=== PATIENT | female | born 1960 | race Caucasian/White ===

== ENCOUNTER → 2018-03-29 | Outpatient (REF) | payer BC ==
[2016-07-27 15:20] VITALS: BMI 19.7
[~2018-03-29] MED LIST: ASCO-188 PO; ASCO500C9 PO; BREX1TAB PO; CALC-515 PO; CALC500T6 PO; CHOL10005 PO; CHOL200025 PO; CITA-156 PO; CYCL1DRO6 OP; DIA5 PO; FERR-53 PO; FERR140T2 PO; FLUO60TA PO; FOLI-68 PO; GABA-549 PO; HYDR200T42 PO; HYDR200T77 PO; IRON150C19 PO; LEVO50TA80 PO; LEVO50TA86 PO; LIT300L FT; METH2.5T43 PO; MIRT-25 PO; MIRT-28 PO; MULT-1379 PO; OLAN10TA25 PO; OLAN5TAB25 PO; PROP20TA56 PO; RHEUMATREX PO
== END ==
LOC: ZZSENDIN 09:00
PROVIDERS: ATTEND Physician Assistant
DX: Z51.81 Encounter for therapeutic drug level monitoring (principal); Z79.899 Other long term (current) drug therapy
CPT/HCPCS: 80074; 80178

== ENCOUNTER → 2018-04-05 | Outpatient (CLI) | payer BC ==
[2016-07-27 15:20] VITALS: BMI 19.7
--- NOTE | 2018-04-05 15:23 | RADIOLOGY IMAGING REPORT ---
FACILITY: [facility] PATIENT NAME: MEDINA CHANEL : [id number] MR: [id number]: [id number] EXAM DATE: [id number] ORDERING PHYSICIAN: ROSIE TURCIOS TECHNOLOGIST: Raysa Lowe PROCEDURE:BILATERAL DIGITAL SCREENING MAMMOGRAM WITH CAD ASSISTED INTERPRETATION & 3D TOMOSYNTHESIS COMPARISON:Prior mammograms 02/01/17, 05/27/14. INDICATIONS:SCREENING FINDINGS: The breasts are heterogeneously dense. No significant mass, microcalcification or architectural distortion. No change compared to priors. DIAGNOSTIC CATEGORY 1--NEGATIVE. RECOMMENDATIONS: ROUTINE MAMMOGRAM AND CLINICAL EVALUATION. IMPRESSION: BIRADS 1: Negative. Annual mammographic screening recommended. Dictated by: Tobi Roberto on 04/05/2018 at 14:42 Transcribed by: ALY on 04/05/2018 at 14:48 Approved by: Tobi Roberto on 04/05/2018 at 15:23 [facility]
== END ==
LOC: MAMO 03:05
PROVIDERS: ATTEND Physician Assistant
DX: Z12.31 Encounter for screening mammogram for malignant neoplasm of breast (principal)
CPT/HCPCS: 77063; 77067

== ENCOUNTER 2018-11-01 02:23 | Day surgery (SDC) | payer BC ==
[2016-07-27 15:20] VITALS: Ht 170.2 cm; Wt 71.7 kg
[2018-11-01] VITALS (7 sets, daily range): BP systolic 110–123; BP diastolic 64–74
[~2018-11-01] VITALS: Ht 170.2 cm; Wt 71.7 kg
[~2018-11-01 02:23] MED LIST changes: +ASPI-870 PO; -FERR140T2 PO; +FERR140T3 PO; +FLUO-202 PO; +LITH300T18 PO
[2018-11-01] MEDS ORDERED: PROPOFOL EMUL(*) 10MG/ML 20 ML 20 ML ONE ×2 (07:17→11:10)
[2018-11-01] MEDS ORDERED: LIDOCAINE/SOD BICARB 8.4% SYR ID ONE (11:30)
[2018-11-01] MEDS ORDERED: NORMOSOL R SOLN(*) 1000 ML BAG 1,000 ML IV PRN (11:30)
--- NOTE | 2018-11-01 11:43 | NUR ---
1143- PT BROUGHT TO STEP DOWN PHASE 2 FROM OR, BAY 6, PT IN LL POSITION, UNRESPONSIVE AT THIS TIME, PT MAINTAINING SATS, RESPIRATIONS, AIRWAY ON 2LPM VIA HF NC, AT BEDSIDE, VSS, SBAR REPORT FROM Brian HOUGH RN AND DR. SANTIAGO 1144- DECREASED O2 TO 1LPM VIA HF NC 1146- EYES OPEN PT REMAINS DROWSY, BACK TO SLEEP IN LL 1153- PT RESPONSIVE TO VERBAL STIMULI, REMAINS DROWSY
--- NOTE | 2018-11-01 13:37 | NUR ---
1156 SBAR REPORT FROM Ashia LEMUS RN. CHECKED IN ON PT, STILL RESTING IN L LATERAL POSITION, THERESA AT TIMES. DON AT BEDSIDE. 1200 VSS, DECLINES ANY FOOD OR DRINK AT THIS TIME, ALLOWED TO CONTINUE RESTING 1230 PT MOVED TO SF POSITION, TOLERATING CRANBERRY JUICE 1254 ORTHOSTATICS STARTED, STABLE, PT ALLOWED TO DRESS, IV REMOVED, PRESSURE DRESSING APPLIED, REASSESSED, NO REMARKABLE CHANGES, LUNGS CTA THROUGHOUT. 1300 PT TO TO RESTROOM, STEADY ON FEET 1305 DC INSTRUCTIONS COVERED, ALL QUESTIONS ANSWERED. WALKED PT TO CAR OUTSIDE OF ADMITTING, DECLINED WC. ALL BELONGINGS WITH PT.
== END 2018-11-01 13:00 | disposition home or self-care (01) ==
LOC: OR 02:23
PROVIDERS: ATTEND Family Medicine
DX: Z12.11 Encounter for screening for malignant neoplasm of colon (principal)
CPT/HCPCS: 00812; 45378; J2704